=== PATIENT | female | born 2000 | race Caucasian/White ===

== ENCOUNTER 2024-11-17 01:39 | Emergency (ER) | payer SELFPAY ==
[2024-11-17 01:43] VITALS: BP 99/67; BMI 21.8
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
[2024-11-17 03:46] LABS: Urine Bilirubin Negative (Negative); Urine Character Clear (Clear); Urine Color Yellow; Urine Glucose Negative (Negative); Urine Ketone Negative (Negative); Urine Leukocyte Negative (Negative); Urine Nitrite Negative (Negative); Urine Occult Blood Negative (Negative); Urine Specific Gravity 1.025 (<1.030); Urine Urobilinogen Negative (Neg - 1+)
[2024-11-17 03:48] LABS: Urine Albumin Trace (Neg - Trace)
[2024-11-17 03:58] LABS: Amphetamines Positive (Negative); Barbiturates Negative (Negative); Benzodiazepines Negative (Negative); Buprenorphine Negative (Negative); Cocaine Negative (Negative); Marijuana Negative (Negative); Methadone Negative (Negative); Methamphetamines Negative (Negative); Opiates Negative (Negative); Phencyclidine Negative (Negative); Tricyclic Antidepressants Negative (Negative)
[2024-11-17 04:34] LABS: Fentanyl, Urine Negative (Negative)
== END 2024-11-17 05:58 ==
LOC: EMR 01:39
PROVIDERS: EMERGENCY PHYSICIAN Student in an Organized Health Care Education/Training Program
DX: F41.9 Anxiety disorder, unspecified (principal); Y09 Assault by unspecified means; J45.909 Unspecified asthma, uncomplicated; Z65.3 Problems related to other legal circumstances; Z82.49 Family history of ischemic heart disease and other diseases of the circulatory system
CPT/HCPCS: 99282; 80306; 80307; 81003